=== PATIENT | female | born 1975 | race African-American/Black ===

== ENCOUNTER 2017-11-20 15:48 | Emergency (ER) | payer BC ==
[2017-11-20 16:08] VITALS: BP 113/69; PULSE 57; TEMP 98.9; BMI 33.2
[2017-11-20] MEDS ORDERED: ACETAMINOPHEN 500 MG TABLET (FP) PO ONE (16:09)
--- NOTE | 2017-11-20 16:09 | PDOC ---
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
[2017-11-20] MEDS ORDERED: ACETAMINOPHEN 325 MG TABLET (FP) ONE ×2 (17:12→17:13)
--- NOTE | 2017-11-20 17:23 | PDOC ---
History of Present Illness - General Chief Complaint: Pain, Acute Stated Complaint: ABDOMINAL PRESSURE LOWR BACK PAIN Time Seen by Provider: 11/20/17 16:03 History Source: Patient Exam Limitations: No Limitations - History of Present Illness Initial Comments: 11/20/17 17:20 42 year old female A1 with no PMH presenting to ED complaining of suprapubic pain since 1500 today. Her pain radiates to her back. LMP 11/16/17. She states she is using 3 pads a day, usually she uses 1 a day. She admits to clots. Her pain is associated with nausea, lightheadedness. She denies chest pain, SOB, syncope, vomiting, diarrhea, constipation, dysuria, flank pain. Allergies - NKDA PCP - Dr. Isidro HONG - unknown name Past History - Past Medical History Allergies/Adverse Reactions: Allergies Allergy/AdvReac Type Severity Reaction Status Date / Time No Known Drug Allergies Allergy Verified 11/20/17 16:04 Home Medications: Ambulatory Orders Aspirin [Aspirin EC] 81 mg PO DAILY 01/20/16 Pnv95/Iron Fum/Folic Acid [ Caplet] 1 each PO DAILY 01/20/16 Ibuprofen [Motrin -] 600 mg PO QID PRN #28 tablet 01/23/16 Asthma: No Cardiac Disorders: No COPD: No Dementia: No GI Disorders: No Other medical history: DENIES. - Surgical History Abdominal Surgery: Yes (COLONOSCOPY) - Suicide/Smoking/Psychosocial Hx Smoking History: Never smoked Have you smoked in the past 12 months: No Hx Alcohol Use: No Drug/Substance Use Hx: No Substance Use Type: None Review of Systems - Review of Systems Able to Perform ROS?: Yes Comments:: 11/20/17 17:22 General: denies fever, chills, night sweats, generalized weakness. HEENT: denies sore throat, rhinorrhea, ear pain. Heart: admits to lightheadedness. denies chest pain, palpitations, syncope, lower extremity swelling, diaphoresis. Respiratory: denies shortness of breath, cough, sputum production, hematemesis. Abdomen: admits to abdominal pain, nausea. denies vomiting, diarrhea, constipation, blood in stool. : denies dysuria, increased urinary frequency, hematuria, urinary incontinence , flank pain. Back: admits to back pain. denies flank pain. Neurological: denies headache, dizziness, numbness, tingling, weakness. Skin: denies rash, laceration, abrasion. *Physical Exam - Vital Signs Last Vital Signs Temp Pulse Resp BP Pulse Ox 98.9 F 57 L 19 113/69 99 11/20/17 16:04 11/20/17 16:04 11/20/17 16:04 11/20/17 16:04 11/20/17 16:04 - Physical Exam Comments: 11/20/17 17:22 Appearance: comfortable, appears well. obese. HEENT: head is normocephalic, atraumatic. EOMI. PERRLA. Neck: supple. Full ROM. Heart: regular rhythm. no murmurs, rubs or gallops. No pericardial friction rub. Lungs: clear to auscultation bilaterally. no crackles, rhonchi or wheezing. no stridor. Abdomen: soft, nontender. normal bowel sounds. no rebound, guarding, masses. Extremities: Peripheral pulses intact and equal. No lower extremity edema. Neurological: Alert. Oriented x3. CN 2-12 grossly intact. Moves all four extremities. 11/20/17 17:30 Pelvic examination: cervix visualized, external os closed. No CMT. Blood visualized externally, no pooling of blood in vaginal vault. ED Treatment Course - LABORATORY CBC & Chemistry Diagram: 11/20/17 18:00 11/20/17 19:00 - RADIOLOGY Radiology Studies Ordered: Category Date Time Status TRANSVAGINAL ULTRASOUND US [US] Stat Ultrasound 11/20/17 17:04 Ordered Medical Decision Making - Medical Decision Making 11/20/17 17:30 42 year old female A1 with no PMH presenting to ED for suprapubic pain, nausea, and vaginal bleeding. Pt is currently on her period but experiencing more bleeding than normal. Initial Vital Signs Temp Pulse Resp BP Pulse Ox 98.9 F 57 L 19 113/69 99 11/20/17 16:04 11/20/17 16:04 11/20/17 16:04 11/20/17 16:04 11/20/17 16:04 Afebrile. No tachycardia. No hypotension. Pending labs, TVUS. 11/20/17 18:56 Urine test negative. Chemistry and type and screen hemolyzed. Blood redrawn and sent to lab. 11/20/17 20:35 No anemia. Chemistry normal. LFTs normal. TVUS report - no sonographic abnormality is identified. Pt will be discharged with follow up instructions and strict return precautions. *DC/Admit/Observation/Transfer Diagnosis at time of Disposition: Lower abdominal pain - Discharge Dispostion Disposition: HOME Condition at time of disposition: Stable Decision to Admit order: No - Referrals Referrals: Onesimo Felix MD [Primary Care Provider] - - Patient Instructions Printed Discharge Instructions: DI for Vaginal Bleeding Additional Instructions: You were seen today for abdominal pain and vaginal bleeding. Your blood work revealed no anemia. Your electrolytes were normal. Your liver enzymes were normal. Your test was negative. Your ultrasound of your uterus and ovaries was normal. I have included a copy in your discharge paperwork. Take Tylenol over the counter for your pain. Follow up with your OBGYN within 7 days, call their office tomorrow morning and make an appointment for this as soon as possible Bring the paperwork given to you today with you to your appointment. Follow up with your Primary Care Doctor within 7 days, call their office tomorrow morning and make an appointment for this as soon as possible. Bring the paperwork given to you today with you to your appointment. Return prior to [facility] Emergency Department if you experience lightheadedness, passing out, chest pain, shortness of breath, palpitations, generalized weakness, profuse bleeding, increasing abdominal pain or any other new, worsening or concerning symptoms. - Post Discharge Activity Forms/Work/School Notes: Back to Work
[2017-11-20] MEDS ORDERED: ONDANSETRON *ODT* 4 MG TABLET SL ONE (17:32)
[2017-11-20] MEDS ORDERED: ONDANSETRON *ODT* 4 MG TABLET ONE (18:08)
[2017-11-20 18:10] LABS: BASO % 0.7 % (0-2.0); EOS % 0.6 % (0-4.5); HEMOGLOBIN 11.3 GM/dL (10.7-15.3); LYMPH % 38.5 % (8-40); MCH 26.7 pg (25.7-33.7); MCHC 32.4 g/dl (32.0-36.0); MEAN CELL VOLUME 82.4 fl (80-96); MEAN PLT VOLUME 8.4 fl (7.5-11.1); MONO % 8.1 % (3.8-10.2); NEUT % 52.1 % (42.8-82.8); PLATELET COUNT 307 K/MM3 (134-434); RBC 4.25 M/mm3 (3.60-5.2); WHITE BLOOD COUNT 6.9 K/mm3 (4.0-10.0)
[2017-11-20 18:32] LABS: HCG,QUALITATIVE URINE Negative
[2017-11-20 18:38] LABS: URINE APPEARANCE CLOUDY; URINE BILIRUBIN NEGATIVE (<2.0 mg/dL); URINE COLOR YELLOW; URINE GLUCOSE (UA) NEGATIVE (NEGATIVE); URINE KETONE NEGATIVE (NEGATIVE); URINE LEUK ESTERASE NEGATIVE (NEGATIVE); URINE NITRITE NEGATIVE (NEGATIVE); URINE UROBILINOGEN NEGATIVE mg/dL (0.2-1.0)
[2017-11-20 18:42] LABS: URINE PROTEIN 2+ (NEGATIVE)
[2017-11-20 18:49] LABS: EPI CELLS RARE /HPF (FEW); URINE MUCUS MANY
--- NOTE | 2017-11-20 19:08 | PDOC ---
Attending Attestation - HPI HPI: 11/20/17 19:24 The patient is a 42 year old female A1, with no significant past medical history, who presents to the ED complaining of abdominal pain starting today. She describes her pain as localized in the suprapubic region, ranging from mild to moderate, with radiation to the back. She also complaints of excessive bleeding from her current menstrual cycle. Usually she goes through 1 pad a day , currently shes going through 3 pads a day. She noted clots. She also reports nausea and lightheadedness associated with her chief complaint. The patient denies chest pain, shortness of breath, headache, fever, chills, vomiting, diarrhea or constipation. Allergies: None Past surgical history: None reported Social History: No alcohol, tobacco or drug use reported PMD: Dr. Felix - Physicial Exam PE: 11/20/17 19:25 Constitutional: Awake, alert, oriented. No acute distress. Head: Normocephalic. Atraumatic Eyes: PERRL. EOMI. Conjunctivae are not pale. ENT: Mucous membranes are moist and intact. Posterior pharynx without exudates or erythema. Uvula midline. Neck: Supple. Full ROM. No lymphadenopathy. Cardiovascular: (+) Bradycardia. Regular rhythm. S1, S2 regular. Distal pulses are 2+ and symmetric. Pulmonary/Chest: No evidence of respiratory distress. Clear to auscultation bilaterally No wheezing, rales or rhonchi. Abdominal: Soft and non-distended. There is no tenderness. No rebound, guarding or rigidity. No organomegaly. No palpable masses. Good bowel sounds. Back: No CVA tenderness. Musculoskeletal: No edema. No cyanosis. No clubbing. Full range of motion in all extremities. Nocalf tenderness. Radial/pedal pulses are intact and 2+ bilaterally Skin: Skin is warm and dry. No petechiae. No purpura. Neurological: Alert and oriented to person, place, and time. Cranial nerves II -XII are grossly intact. Normal speech. Strength is grossly symmetric. No sensory deficits. Psychiatric: Good eye contact. Normal interaction, affect and behavior. Pelvic examination: (+) Cervix visualized, external os closed. No CMT. Blood visualized externally, no pooling of blood in vaginal vault. \ <Cuco Max - Last Filed: 11/20/17 19:25> - Resident Resident Name: Jena Kelsey - ED Attending Attestation I have performed the following: I have examined & evaluated the patient, The case was reviewed & discussed with the resident, I agree w/resident's findings & plan, Exceptions are as noted - Medical Decision Making 11/20/17 19:05 I, Dr. Paty Fink, DO, attest that this document has been prepared under my direction and personally reviewed by me in its entirety. I further attest, that it accurately reflects all work, treatment, procedures and medical decision -making performed by me. 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
[2017-11-20 19:40] LABS: ALBUMIN 3.8 g/dl (3.4-5.0); ANION GAP 10 MMOL/L (8-16); BILIRUBIN,TOTAL 0.4 mg/dL (0.2-1.0); BLOOD UREA NITROGEN 9 mg/dL (7-18); CALCIUM 8.9 mg/dL (8.5-10.1); CHLORIDE 106 mmol/L (98-107); CO2 24 mmol/L (21-32); CREATININE 0.6 mg/dL (0.55-1.02); GLUCOSE,RANDOM 80 mg/dL (74-106); POTASSIUM 3.9 mmol/L (3.5-5.1); SGOT/AST 18 U/L (15-37); SGPT/ALT 26 U/L (12-78); SODIUM 140 mmol/L (136-145); TOT PROT 7.7 g/dl (6.4-8.2)
[2017-11-20 19:41] LABS: ALK PHOS 54 U/L (45-117)
== END 2017-11-20 20:55 | disposition home or self-care (01) ==
LOC: JER 15:48
DX: R10.30 Lower abdominal pain, unspecified (principal)
CPT/HCPCS: 36415; 76830-TC; 80053; 81003; 81015; 84703; 85025; 86850; 86900; 86901; 87086; 99282-25; Q0162